=== PATIENT | female | born 1985 | race African-American/Black ===

== ENCOUNTER 2016-11-26 02:09 | Emergency (ER) | payer OTHER ==
[~2016-11-26] VITALS: Ht 160 cm; Wt 68.0 kg
[2016-11-26] MEDS ORDERED: HYDROCODONE-APA1 TA1 PO (02:28)
[2016-11-26 02:30] LABS: URINE BILIRUBIN NEGATIVE (Negative); URINE BLOOD 1+ (Negative); URINE COLOR YELLOW; URINE GLUCOSE-RANDOM* NEGATIVE (Negative); URINE KETONES NEGATIVE (Negative); URINE NITRITE POSITIVE (Negative); URINE PROTEIN (DIPSTICK) NEGATIVE (Negative); URINE SPECIFIC GRAVITY 1.025 (1.003-1.035)
[2016-11-26 02:36] LABS: SQUAMOUS >10 Many /LPF (0-3)
[2016-11-26 02:38] LABS: CASTS None Seen /LPF (None Seen)
[2016-11-26 02:39] LABS: BACTERIA >30 Many /HPF (None Seen); CRYSTALS None Seen /LPF (None Seen); URINE RBC 0-2 Rare /HPF (0-2); URINE WBC 0-5 Rare /HPF (0-5)
[2016-11-26] MEDS ORDERED: FLAGYL500 MG PO (02:46)
[2016-11-26] MEDS ORDERED: MACROBID 100 M100 M1 PO (02:46)
[2016-11-26] MEDS ORDERED: AZITHROMYCIN 2250 MG PO (03:01)
[2016-11-26 03:51] VITALS: BP 124/85
== END 2016-11-26 03:52 | disposition home or self-care (01) ==
LOC: ER 02:09
PROVIDERS: Emergency Medicine
DX: S31.41XA Laceration without foreign body of vagina and vulva, initial encounter (principal); A59.01 Trichomonal vulvovaginitis; N39.0 Urinary tract infection, site not specified; X58.XXXA Exposure to other specified factors, initial encounter; Y93.89 Activity, other specified; Y92.89 Other specified places as the place of occurrence of the external cause; Y99.8 Other external cause status

== ENCOUNTER 2017-01-16 15:17 | Emergency (ER) | payer OTHER ==
[~2017-01-16] VITALS: Ht 160 cm; Wt 68.0 kg
[~2017-01-16 15:17] MED LIST: AZITHROMYCIN 2250 MG PO; FLAGYL500 MG PO; HYDROCODONE-APA1 TA1 PO; MACROBID 100 M100 M1 PO
[2017-01-16 15:44] LABS: URINE BILIRUBIN NEGATIVE (Negative); URINE BLOOD NEGATIVE (Negative); URINE COLOR YELLOW; URINE GLUCOSE-RANDOM* NEGATIVE (Negative); URINE KETONES NEGATIVE (Negative); URINE NITRITE NEGATIVE (Negative); URINE PROTEIN (DIPSTICK) NEGATIVE (Negative); URINE SPECIFIC GRAVITY 1.025 (1.003-1.035); URINE UROBILINOGEN 0.2 E.U./dl (0.2-1.0)
[2017-01-16 15:51] LABS: SQUAMOUS 0-3 Few /LPF (0-3)
[2017-01-16 15:52] LABS: BACTERIA 1-9 Few /HPF (None Seen); CASTS None Seen /LPF (None Seen); CRYSTALS None Seen /LPF (None Seen); URINE RBC None Seen /HPF (0-2); URINE WBC 6-15 Few /HPF (0-5)
[2017-01-16] MEDS ORDERED: CYCLOBENZAPRINE5 MG PO (16:03)
[2017-01-16 16:26] LABS: ABSOLUTE NEUTROPHILS 7.3 thou/uL (1.4-8.2); BASOPHILS 0.5 % (0.0-2.0); EOSINOPHILS 2.3 % (0.0-3.0); HEMATOCRIT 40.4 % (37.0-47.0); HEMOGLOBIN 13.4 gm/dL (12.0-15.0); LYMPHOCYTES 15.4 % (24.0-44.0); MCH 27.5 pg (26.0-34.0); MCHC 33.2 g/dL (28.0-37.0); MCV 82.9 fL (80.0-100.0); MONOCYTES 6.3 % (1.0-8.0); PLATELET COUNT 219 thou/uL (150-400); POLYS 75.5 % (36.0-66.0); RBC 4.88 mil/uL (4.20-5.00); RDW 14.1 % (10.5-14.5); WBC 9.7 thou/uL (4.0-11.0)
[2017-01-16 16:27] LABS: MANUAL DIFF NO
[2017-01-16 16:33] LABS: CALCIUM 9.4 mg/dL (8.5-10.1); CREATININE 0.8 mg/dL (0.6-1.0); POTASSIUM 3.7 mmol/L (3.5-5.1)
[2017-01-16 17:32] VITALS: BP 117/63
[2017-01-20 15:07] LABS: CHLAMYDIA TRACHOMATIS-PCR Negative (Negative); NEISSERIA GONORRHEA-PCR Positive (Negative)
== END 2017-01-16 17:32 | disposition home or self-care (01) ==
LOC: ER 15:17
PROVIDERS: Physician Assistant
DX: N89.8 Other specified noninflammatory disorders of vagina (principal); M41.9 Scoliosis, unspecified; F17.210 Nicotine dependence, cigarettes, uncomplicated; F12.10 Cannabis abuse, uncomplicated

== ENCOUNTER 2018-01-05 20:33 | Emergency (ER) | payer OTHER ==
[~2018-01-05] VITALS: Ht 160 cm; Wt 68.0 kg
[~2018-01-05 20:33] MED LIST changes: +CYCLOBENZAPRINE5 MG PO
[2018-01-05 20:54] VITALS: BP 126/82
[2018-01-06] MEDS ORDERED: HYDROCODONE-AP1 EAC6 PO ×2 (00:02)
== END 2018-01-06 03:13 | disposition home or self-care (01) ==
LOC: ER 20:33
DX: M25.552 Pain in left hip (principal); F17.210 Nicotine dependence, cigarettes, uncomplicated; W01.0XXA Fall on same level from slipping, tripping and stumbling without subsequent striking against object, initial encounter; Y93.89 Activity, other specified; Y92.481 Parking lot as the place of occurrence of the external cause; Y99.8 Other external cause status

== ENCOUNTER 2018-01-24 08:06 | Emergency (ER) | payer OTHER ==
[~2018-01-24] VITALS: Ht 160 cm; Wt 68.0 kg
[~2018-01-24 08:06] MED LIST changes: +HYDROCODONE-AP1 EAC6 PO
[2018-01-24] MEDS ORDERED: NAPROSYN500 MG PO (08:34)
[2018-01-24] MEDS ORDERED: TRAMADOL 50 MG50 MG PO (08:34)
[2018-01-24 10:03] VITALS: BP 137/73
== END 2018-01-24 10:05 | disposition home or self-care (01) ==
LOC: ER 08:06
DX: S02.2XXA Fracture of nasal bones, initial encounter for closed fracture (principal); S63.601A Unspecified sprain of right thumb, initial encounter; S00.83XA Contusion of other part of head, initial encounter; F17.210 Nicotine dependence, cigarettes, uncomplicated; Y04.0XXA Assault by unarmed brawl or fight, initial encounter; Y93.89 Activity, other specified; Y92.89 Other specified places as the place of occurrence of the external cause; Y99.8 Other external cause status

== ENCOUNTER 2018-06-14 21:12 | Emergency (ER) | payer OTHER ==
[~2018-06-14] VITALS: Ht 160 cm; Wt 72.6 kg
[~2018-06-14 21:12] MED LIST changes: +NAPROSYN500 MG PO; +TRAMADOL 50 MG50 MG PO
[2018-06-14] MEDS ORDERED: ZPAK PO (23:09)
[2018-06-14] MEDS ORDERED: TESSALON PERLE100 MG PO (23:09)
[2018-06-15 00:26] VITALS: BP 126/81
== END 2018-06-15 00:28 | disposition home or self-care (01) ==
LOC: ER 21:12
DX: J40 Bronchitis, not specified as acute or chronic (principal); F17.210 Nicotine dependence, cigarettes, uncomplicated; M41.9 Scoliosis, unspecified

== ENCOUNTER 2018-07-20 02:46 | Emergency (ER) | payer OTHER ==
[~2018-07-20] VITALS: Ht 160 cm; Wt 72.6 kg
[~2018-07-20 02:46] MED LIST changes: +TESSALON PERLE100 MG PO; +ZPAK PO
[2018-07-20] MEDS ORDERED: NAPROSYN500 MG PO (03:18)
[2018-07-20] MEDS ORDERED: TRAMADOL 50 MG50 MG PO (03:18)
[2018-07-20 03:50] VITALS: BP 116/67
== END 2018-07-20 03:50 | disposition home or self-care (01) ==
LOC: ER 02:46
DX: G89.29 Other chronic pain (principal); M25.531 Pain in right wrist; F17.210 Nicotine dependence, cigarettes, uncomplicated

== ENCOUNTER 2018-07-26 21:17 | Emergency (ER) | payer OTHER ==
[~2018-07-26] VITALS: Ht 160 cm; Wt 72.6 kg
[2018-07-26 22:09] LABS: URINE BILIRUBIN 1+ (Negative); URINE BLOOD TRACE (Negative); URINE CLARITY SL CLOUDY; URINE COLOR YELLOW; URINE GLUCOSE-RANDOM* NEGATIVE (Negative); URINE KETONES 1+ (Negative); URINE NITRITE-REFLEX NEGATIVE (Negative); URINE PROTEIN (DIPSTICK) TRACE (Negative); URINE SPECIFIC GRAVITY >= 1.030 (1.005-1.035); URINE UROBILINOGEN 0.2 E.U./dl (0.2-1.0)
[2018-07-26 22:13] LABS: ICTOTEST (BILI CONFIRMATORY) Positive (Negative); URINE LEUKOCYTES-REFLEX 2+ (Negative)
[2018-07-26 22:17] LABS: CASTS None Seen /LPF (None Seen); CRYSTALS None Seen /LPF (None Seen); MUCUS 4-6 Moderate strn/LPF (None Seen); SQUAMOUS >10 Many /LPF (0-3); URINE RBC 0-2 Rare /HPF (0-2)
[2018-07-27 00:09] VITALS: BP 133/78
== END 2018-07-27 00:10 | disposition home or self-care (01) ==
LOC: ER 21:17
PROVIDERS: Emergency Medicine
DX: Z20.2 Contact with and (suspected) exposure to infections with a predominantly sexual mode of transmission (principal); F17.210 Nicotine dependence, cigarettes, uncomplicated; M41.9 Scoliosis, unspecified

== ENCOUNTER 2018-11-29 09:50 | Emergency (ER) | payer OTHER ==
[~2018-11-29] VITALS: Ht 160 cm; Wt 72.6 kg
[2018-11-29] MEDS ORDERED: TRAMADOL 50 MG50 MG PO (11:25)
[2018-11-29 11:48] VITALS: BP 126/87
== END 2018-11-29 11:49 | disposition home or self-care (01) ==
LOC: ER 09:50
DX: S92.355A Nondisplaced fracture of fifth metatarsal bone, left foot, initial encounter for closed fracture (principal); S93.491A Sprain of other ligament of right ankle, initial encounter; M41.9 Scoliosis, unspecified; F17.210 Nicotine dependence, cigarettes, uncomplicated; X50.1XXA Overexertion from prolonged static or awkward postures, initial encounter; Y93.89 Activity, other specified; Y92.89 Other specified places as the place of occurrence of the external cause; Y99.8 Other external cause status

== ENCOUNTER 2019-08-27 10:00 | Emergency (ER) | payer OTHER ==
[~2019-08-27] VITALS: Ht 160 cm; Wt 79.4 kg
[2019-08-27] MEDS ORDERED: IBU800 MG PO (10:24)
[2019-08-27 10:37] LABS: URINE BILIRUBIN NEGATIVE (Negative); URINE BLOOD NEGATIVE (Negative); URINE CLARITY CLOUDY; URINE COLOR YELLOW; URINE GLUCOSE-RANDOM* NEGATIVE (Negative); URINE KETONES NEGATIVE (Negative); URINE LEUKOCYTES-REFLEX NEGATIVE (Negative); URINE NITRITE-REFLEX NEGATIVE (Negative); URINE PROTEIN (DIPSTICK) NEGATIVE (Negative); URINE UROBILINOGEN 0.2 E.U./dl (0.2-1.0)
[2019-08-27 10:42] LABS: ABSOLUTE NEUTROPHILS 3.6 thou/uL (1.4-8.2); BASOPHILS 0.7 % (0.0-2.0); EOSINOPHILS 2.3 % (0.0-3.0); HEMATOCRIT 42.5 % (37.0-47.0); HEMOGLOBIN 13.5 gm/dL (12.0-15.0); LYMPHOCYTES 30.6 % (24.0-44.0); MCH 26.6 pg (26.0-34.0); MCHC 31.8 g/dL (28.0-37.0); MCV 83.7 fL (80.0-100.0); MONOCYTES 7.1 % (1.0-8.0); PLATELET COUNT 236 thou/uL (150-400); POLYS 59.3 % (36.0-66.0); RBC 5.07 mil/uL (4.20-5.00); RDW 14.1 % (10.5-14.5); WBC 6.1 thou/uL (4.0-11.0)
[2019-08-27 10:46] LABS: CALCIUM 9.5 mg/dL (8.5-10.1); CREATININE 0.8 mg/dL (0.6-1.0); POTASSIUM 3.8 mmol/L (3.5-5.1)
[2019-08-27 10:52] LABS: ALBUMIN 4.1 g/dL (3.4-5.0); TOTAL BILIRUBIN 0.5 mg/dL (<0.1-1.0); TOTAL PROTEIN 8.2 g/dL (6.4-8.2)
[2019-08-27] MEDS ORDERED: PRILOSEC OTC20 MG PO ×2 (12:35→12:43)
[2019-08-27 12:58] VITALS: BP 116/80
== END 2019-08-27 13:00 | disposition home or self-care (01) ==
LOC: ER 10:00
PROVIDERS: Emergency Medicine
DX: R19.7 Diarrhea, unspecified (principal); R10.10 Upper abdominal pain, unspecified; M41.9 Scoliosis, unspecified; F17.210 Nicotine dependence, cigarettes, uncomplicated

== ENCOUNTER 2019-09-03 20:12 | Emergency (ER) | payer OTHER ==
[~2019-09-03] VITALS: Ht 165.1 cm; Wt 59.0 kg
[~2019-09-03 20:12] MED LIST changes: +IBU800 MG PO; +PRILOSEC OTC20 MG PO
[2019-09-03 21:24] VITALS: BP 129/78
[2019-09-03 21:26] LABS: ABSOLUTE NEUTROPHILS 3.9 thou/uL (1.4-8.2); BASOPHILS 0.7 % (0.0-2.0); EOSINOPHILS 2.4 % (0.0-3.0); HEMATOCRIT 38.7 % (37.0-47.0); HEMOGLOBIN 12.3 gm/dL (12.0-15.0); LYMPHOCYTES 32.1 % (24.0-44.0); MCH 26.7 pg (26.0-34.0); MCHC 31.8 g/dL (28.0-37.0); MCV 83.9 fL (80.0-100.0); MONOCYTES 6.3 % (1.0-8.0); PLATELET COUNT 216 thou/uL (150-400); POLYS 58.5 % (36.0-66.0); RBC 4.62 mil/uL (4.20-5.00); WBC 6.6 thou/uL (4.0-11.0)
[2019-09-03 21:42] LABS: ANION GAP 7 mmol/L (7-16); BUN 9 mg/dL (7-18); CHLORIDE 102 mmol/L (98-107); CO2 26 mmol/L (21-32); CREATININE 0.7 mg/dL (0.6-1.0); GLUCOSE 95 mg/dL (74-106); POTASSIUM 3.7 mmol/L (3.5-5.1); SODIUM 135 mmol/L (136-145); TROPONIN-I <0.06 ng/mL (<0.06)
--- NOTE | 2019-09-06 14:48 | EKG ---
[address] [place] [address] ELECTROCARDIOGRAM REPORT Name: YURIDIADAYNA Eliz Room #: [facility]#: [id number] Admission: 09/03/19 Attend Phys: Discharge: 09/03/19 Date of : 87 Report #: [id number] THIS REPORT FOR: //name// [facility] ED Test Date: 2019-09-03 Test Time: 20:27:57 Pat Name: DAYNA SHI Department: Room: Gender: F Planning Feeder: dominique carreno : 1985 Requested By: Adilson Brizuela Order Number: [id number] MD: Shan Brandon Measurements Intervals [place] Rate: 78 P: -1 [place]: 118 QRS: 34 QRSD: 89 T: 31 QT: 402 QTc: 458 Interpretive Statements Sinus rhythm Borderline short [place] interval Compared to ECG 11/13/2007 16:41:45 Sinus arrhythmia no longer present T-wave abnormality no longer present Electronically Signed On 09-06-2019 14:47:24 [employer]ES OFFICE ASSISTANT by Shan Brandon [email or web address] <ELECTRONICALLY SIGNED> By: Shan Brandon MD 09/06/19 [id number] Shan Brandon MD /BLAIR
== END 2019-09-03 22:19 | disposition home or self-care (01) ==
LOC: ER 20:12
PROVIDERS: Emergency Medicine
DX: R07.89 Other chest pain (principal); F17.210 Nicotine dependence, cigarettes, uncomplicated

== ENCOUNTER 2019-09-20 21:08 | Emergency (ER) | payer OTHER ==
[~2019-09-20] VITALS: Ht 160 cm; Wt 79.4 kg
[2019-09-20] MEDS ORDERED: IBUPROFEN 800800 MG PO (21:59)
[2019-09-20] MEDS ORDERED: TRAMADOL 50 MG50 MG PO (21:59)
[2019-09-20 22:24] VITALS: BP 118/47
== END 2019-09-20 22:25 | disposition home or self-care (01) ==
LOC: ER 21:08
DX: S93.402A Sprain of unspecified ligament of left ankle, initial encounter (principal); S93.602A Unspecified sprain of left foot, initial encounter; F17.210 Nicotine dependence, cigarettes, uncomplicated; X58.XXXA Exposure to other specified factors, initial encounter; Y93.89 Activity, other specified; Y92.89 Other specified places as the place of occurrence of the external cause; Y99.8 Other external cause status